=== PATIENT | male | born 1975 | race Caucasian/White ===

== ENCOUNTER 2021-09-19 18:39 | Emergency (ER) | payer OTHER, SELFPAY ==
--- NOTE | ~2021-09-19 | XR_ITS ---
XR knee LT min 4V 09/19/2021 18:57 Indication: Left knee pain Procedure: 4 views left knee Comparison: No prior studies for comparison. Findings: There is mild osteoarthritis of the left knee. No fracture, subluxation or dislocation. Sma ll joint effusion. Impression: 1: Mild osteoarthritis of the left knee. Reviewed, dictated and finalized at location A. [employer] Impression: 1: Mild osteoarthritis of the left knee.
[2021-09-19 18:41] VITALS: BP 172/93; PULSE 101; RESP 16; TEMP 35.8; O2SAT 97
--- NOTE | 2021-09-19 19:12 | ED.LOWEXIN ---
HPI - Extremity Injury (Lower) General Chief Complaint: Extremity Injury, Lower Stated Complaint: L knee injury Time Seen by Provider: 09/19/21 18:45 Source: patient Mode of arrival: ambulatory Limitations: no limitations History of Present Illness HPI Narrative: This is a 46-year-old male that presents to the emergency department for left knee injury sustained a week ago. Reports he is trying to move something heavy at work. He felt a pop at the knee. He has had pain with bending and weightbearing since the injury. Reports decreased range of motion due to pain. Denies edema, or numbness. Related Data Allergies Allergy/AdvReac Type Severity Reaction Status Date / Time No Known Allergies Allergy Verified 09/19/21 19:18 Review of Systems Review of Systems: CONSTITUTIONAL: Denies fever MUSCULOSKELETAL: Reports joint pain, and myalgia. NEUROLOGIC: Denies numbness All systems reviewed & are unremarkable except as noted in HPI and below PMFSH Past Medical History Medical History (Updated 09/19/21 @ 19:29 by Fifi Mathis PA-C) No active medical problems Social History Social History (Updated 09/19/21 @ 19:13 by Fifi Mathis PA-C) Substance use: never Exam Narrative: GENERAL: Well-appearing, well-nourished, and in no acute distress. HEAD: Normocephalic, atraumatic. EYES: EOMI. EXTREMITIES: Normal range of motion. No edema or obvious deformity. Normal DP pulses. Normal sensation SKIN: Warm, dry, no rash. NEURO: No focal deficits. Alert and oriented x3. PSYCH: Normal mood and affect Course Vital Signs Vital signs: Vital Signs Temperature 96.5 F L 09/19/21 18:41 Pulse Rate 101 H 09/19/21 18:41 Respiratory Rate 16 09/19/21 18:41 Blood Pressure 172/93 H 09/19/21 18:41 Pulse Oximetry 97 09/19/21 18:41 Temperature 96.5 F L 09/19/21 18:41 Pulse Rate 101 H 09/19/21 18:41 Respiratory Rate 16 09/19/21 18:41 Blood Pressure 172/93 H 09/19/21 18:41 Pulse Oximetry 97 09/19/21 18:41 MDM - Extremity Injury (Lower) MDM Narrative Medical decision making narrative: Patient presents to the ER for left knee pain after an injury a week ago. Patient is neurovascularly intact. Left knee x-ray shows mild osteoarthritis with small joint effusion. Patient placed in a knee immobilizer and given crutches. Instructed on care of knee sprain. He is to follow up with orthopedics. He was given warnings to return to the ER Approach incidentally noted to be elevated in the ED. He is asymptomatic. Patient was made aware of this. Instructed to continue to monitor and follow-up with his primary care doctor Imaging Data Radiologist's impression: ITS Impressions Knee X-Ray 09/19/21 19:02 Impression: 1: Mild osteoarthritis of the left knee. Critical Care Time Critical Care Time Critical Care Time: No Discharge Plan Discharge Clinical Impression: Acute internal derangement of knee Qualifiers: Laterality: left Qualified Code(s): M23.92 - Unspecified internal derangement of left knee Patient Disposition: Home, Self-Care Condition: Stable Instructions: Knee Sprain (ED) Additional Instructions: Return to the ER if you experience fever, redness and swelling of your leg, weakness, numbness, or any other symptoms that are concerning to you Rest, elevate, ice, take anti-inflammatories (Aleve, Ibuprofen, Naproxen, etc) or Tylenol as needed for pain Follow up with orthopedics. Call to make an appointment Continue to monitor your blood pressure and follow up with your primary doctor Follow-up/Referrals: PHYSICIAN NOT ON STAFF,NONSTAFF [Primary Care Provider] - 3 Days Pranav Newman MD [Physician] - 3 Days
[2021-09-19] MEDS: KETOROLAC (*BKC) 60 MG/2 ML VIAL IM (19:28)
[2021-09-19 19:40] VITALS: RESP 16
== END 2021-09-19 19:39 | disposition home or self-care (01) ==
PROVIDERS: Emergency Provider Emergency Medicine
DX: M23.92 Unspecified internal derangement of left knee (principal); S89.92XA Unspecified injury of left lower leg, initial encounter; M17.12 Unilateral primary osteoarthritis, left knee; X50.0XXA Overexertion from strenuous movement or load, initial encounter
CPT/HCPCS: 73564; 96372; 99283; J1885

== ENCOUNTER 2024-03-01 12:51 | Emergency (ER) | payer OTHER, SELFPAY ==
[2024-03-01] VITALS (22 sets, daily range): BP systolic 126–154; BP diastolic 92–105; PULSE 87–102; RESP 14–28; TEMP 36.8–37.7; O2SAT 95–100
--- NOTE | ~2024-03-01 | CT_ITS ---
CT abdomen pelvis w con Ordering provider: Cecile Encarnacion History: 48 years Male with . L sided abd pain, diarrhea, fevers X4d . Comparison: None. Technique: CT abdomen and pelvis with IV and without oral contrast. Automated exposure control and it erative reconstruction technique were employed. The dose-length product was 1642.85 mGy-cm. Findings: VISUALIZED LOWER CHEST: Dependent atelectatic changes. UPPER ABDOMINAL ORGANS: Liver: Fat infiltration. Gallbladder: Normal. Spleen: Normal. Stomach/duodenum: Normal. Pancreas: Normal. Adrenals: Normal. Kidneys: Normal. PELVIC ORGANS: The bladder is underfilled with thickened wall. Evaluation for cystitis advised. BOWEL AND MESENTERY: Colon: Mild no evidence of diverticulitis.. Normal appendix. Small Bowel: Normal. No obstruction. Peritoneum/mesentery: No free air or free fluid. No mesenteric lymphadenopathy. RETROPERITONEUM: Normal aorta. No retroperitoneal lymphadenopathy. MUSCULOSKELETAL: Superficial soft tissues: Bilateral fat containing inguinal hernias. Small fat containing inguinal he rnias. The superficial soft tissues are normal. Bones: Age appropriate degenerative changes of the spine. Mild spondylolisthesis at the level of L5-S 1 with bilateral spondylolysis. Multilevel loss of height of the lower thoracic vertebrae most likely chronic. IMPRESSION: 1. No acute abdominal process with no evidence of appendicitis, diverticulitis or intestinal obstruc tion. Reviewed, dictated and finalized at location A. IMPRESSION: 1. No acute abdominal process with no evidence of appendicitis, diverticulitis or intestinal obstruction.
--- NOTE | 2024-03-01 13:57 | ED.NAVMDI ---
HPI - Nausea/Vomiting/Diarrhea General Chief complaint: Nausea/Vomiting/Diarrhea <MAC Eugene Last Filed: 03/01/24 19:21> Stated complaint: diarrhea <MAC Eugene Last Filed: 03/01/24 19:21> Time Seen by Provider: 03/01/24 13:57 <MAC Eugene Last Filed: 03/01/24 19:21> Focused HPI: Patient is a 48-year-old male who presents the ED with report of fever and diarrhea. Patient reports having fever intermittently over the past 4 days, as well as profuse diarrhea. Reports having multiple episodes of diarrhea per day. He denies any rectal bleeding, melena. Denies nausea, vomiting. He does report having some pain throughout his left-sided abdomen. Denies bad food exposure, history of similar symptoms. Denies history of diverticulitis. He has never had a colonoscopy. GENERAL: Well-appearing, morbidly obese with BMI of 50.2, and in no acute distress. HEAD: Normocephalic, atraumatic. CHEST: Clear to auscultation. ?No respiratory distress. HEART: Regular rate and rhythm.? ABD: Mild tenderness in L upper abdomen NEURO: ?Alert and oriented x3. Patient screened in triage and initial orders placed.? ?Additional care and disposition to be based upon?diagnostic testing and treatment. <Cecile Encarnacion PA-C - Last Filed: 03/01/24 19:21> Source: patient <MAC Eugene Last Filed: 03/01/24 19:21> Mode of arrival: ambulatory <MAC Eugene Last Filed: 03/01/24 19:21> Limitations: no limitations <MAC Eugene Last Filed: 03/01/24 19:21> History of Present Illness HPI Narrative: 48-year-old male with no pertinent past medical history who presents to the ED for diarrhea, nauseous without vomiting. And subjective fever at home for 4 days. He states he was concerned he might have caught listeria or some kind of bacterial illnesses he was eating hot dogs 2 days prior to the onset of the symptoms. Denies any history diverticulosis, appendicitis, cholecystitis. No history of abdominal surgeries. No abdominal trauma. Was otherwise in normal state of health. Has not tried anything at home for the symptomatology. Has loose watery stools and going every few hours to the restroom. No vomiting. No chest pain shortness a breath. No measurable fever, no chills or shakes. <Raj Garcia MD - Last Filed: 03/01/24 16:40> Related Data Allergies/Adverse reactions: Allergies Allergy/AdvReac Type Severity Reaction Status Date / Time No Known Allergies Allergy Verified 03/01/24 12:52 <Cecile Encarnacion PA-C - Last Filed: 03/01/24 19:21> Review of Systems Review of Systems: As reviewed above in the HPI <Raj Garcia MD - Last Filed: 03/01/24 16:40> PMFSH Past Medical History Medical History: Medical History No active medical problems <Cecile Encarnacion PA-C - Last Filed: 03/01/24 19:21> Social History Social History: Social History Substance use: never <Cecile Encarnacion PA-C - Last Filed: 03/01/24 19:21> Exam Narrative: GENERAL: [Well-appearing, well-nourished, and in no acute distress.] HEAD: [Normocephalic, atraumatic.] EYES: [PERRLA and EOMI.] ENT: Nares clear, no rhinorrhea or epistaxis. Mucous membranes moist. NECK: Supple. CHEST: [Clear to auscultation. No respiratory distress.] HEART: [Regular rate and rhythm]. No murmur heard. [Normal peripheral pulses.] ABDOMEN: [Soft, nondistended], [nontender], [No rigidity or guarding] EXTREMITIES: Normal range of motion. [No edema.] SKIN: Warm, dry, no rash. NEURO: [No focal deficits]. Alert and oriented [x3.] PSYCH: [Normal mood and affect.] <Raj Gracia MD - Last Filed: 03/01/24 16:40> Course Vital Signs Vital signs: Vital Signs T
[2024-03-01 14:23] LABS: Basophils Absolute Auto 0.1 K/mm3 (0.0-0.1); Basophils Percent Auto 0.5 % (0.2-1.2); Eosinophils Absolute Auto 0.2 K/mm3 (0-0.3); Eosinophils Percent Auto 2.1 % (0-4.4); Hemoglobin 14.6 g/dL (14.0-18.0); Immature Granulocyte Absolute 0.03 K/mm3 (0.00-0.031); Immature Granulocyte Percent A 0.3 % (0-0.5); Lymphocytes Absolute Auto 3.04 K/mm3 (0.9-3.2); Lymphocytes Percent Auto 29.2 % (18.3-44.2); Mean Corpuscular Hemoglobin 28.2 pg (26-34); Mean Corpuscular Volume 83.2 fl (80-100); Monocytes Absolute Auto 1.3 K/mm3 (0.1-0.6); Monocytes Percent Auto 12.2 % (2.6-8.5); Neutrophils Absolute Auto 5.8 K/mm3 (1.3-6.7); Neutrophils Percent Auto 55.7 % (45.5-73.1); Platelet Count Result 244 k/mm3 (150-375); Red Blood Count 5.17 M/mm3 (4.6-6.20); White Blood Count 10.4 K/mm3 (4.5-10.0)
--- NOTE | 2024-03-01 14:24 | PC.NURSE ---
patient reports last oral intake at noon today
[2024-03-01 14:41] LABS: Alanine Aminotransferase 45 U/L (6-50); Albumin Level 4.1 g/dL (3.5-5.1); Alkaline Phosphatase 97 U/L (38-126); Anion Gap 12 mmol/L (4-12); Aspartate Amino Transferase 55 U/L (17-59); Bilirubin,Total 1.1 mg/dL (0.2-1.3); Blood Urea Nitrogen 14 mg/dL (9-20); Calcium 9.2 mg/dL (8.4-10.2); Carbon Dioxide 22 mmol/L (22-30); Chloride 103 mmol/L (98-107); Estimated CRCL calculation 142 ml/min; Estimated Glomerular Filt Rate > 60; Glucose 169 mg/dL (65-110); Lipase 104 U/L (23-300); Magnesium 1.9 mg/dL (1.6-2.3); Potassium 3.9 mmol/L (3.4-5.0); Sodium 137 mmol/L (137-145)
--- NOTE | 2024-03-01 14:53 | PC.NURSE ---
Patient and spouse who is at bedside are concerned with the fact that the patient eats hot dogs frequently and there was just a recall of hotdogs, patient reports that he ate hotdogs last Friday and started feeling ill on Friday
[2024-03-01] MEDS: METOCLOPRAMIDE HCL INJ 10 MG/2 ML VIAL IV PUSH (17:01)
[2024-03-01] MEDS: diphenhydrAMINE HCl INJ 50 MG/ML VIAL 25 MG IV PUSH (17:01)
[2024-03-01] MEDS: LOPERAMIDE HCL 2 MG CAPSULE 4 MG PO (17:01)
[2024-03-01] MEDS: LACTATED RINGERS 1,000 ML 999 ML IV CONT (17:02)
== END 2024-03-01 18:07 | disposition home or self-care (01) ==
PROVIDERS: Physician Assistant; Emergency Provider Student in an Organized Health Care Education/Training Program
DX: A05.9 Bacterial foodborne intoxication, unspecified (principal); E86.0 Dehydration
CPT/HCPCS: 36415; 74177; 80053; 83605; 83690; 83735; 85025; 96361; 96374; 96375; 99284; A9270; J1200; J2765; J7120; Q9967